=== PATIENT | male | born 1955 | race Hispanic/Latino ===

== ENCOUNTER 2020-01-27 09:56 | Emergency (ER) | payer MEDICARE, OTHER ==
[2020-01-27] MEDS ORDERED: DOXYCYCLINE 100 MG CAP PO ONE (10:44)
[2020-01-27] MEDS ORDERED: HYDROCODONE/APAP 5/325 MG TAB ONE (10:44)
--- NOTE | 2020-01-27 11:02 | EDPHYS ---
Physician Documentation [facility] Name: Rahul Geronimo Age: 64 yrs Sex: Male : 1955 Arrival Date: 01/27/2020 Time: 09:58 Bed 13 Private MD: ED Physician Dann Villaseñor HPI: 01/27 10:29 This 64 yrs old Male presents to ER via Ambulatory with complaints of Wound Infection. snw 10:29 Onset: The symptoms/episode began/occurred suddenly. Associated signs and symptoms: snw Pertinent positives: tenderness and yellow/green discoloration under right thumbnail. Modifying factors: The patient symptoms are alleviated by nothing, the patient symptoms are aggravated by pressure. The patient has experienced a previous episode. It is unknown whether or not the patient has recently seen a physician. Historical: - Allergies: 10:10 No Known Allergies; iw - Home Meds: 10:10 None [Active]; iw - PMHx: 10:10 Arthritis; iw - PSHx: 10:10 Cholecystectomy; iw - Immunization history:: Last tetanus immunization: unknown. - Coronavirus screen:: The patient has NOT traveled to [place] in the past 14 days. Proceed with normal triage process as indicated. - Social history:: Smoking status: Patient reports the use of cigarette tobacco products, smokes two packs cigarettes per day. - Ebola Screening: : Patient negative for fever greater than or equal to 101.5 degrees Fahrenheit, and additional compatible Ebola Virus Disease symptoms Patient denies exposure to infectious person Patient denies travel to an Ebola-affected area in the 21 days before illness onset No symptoms or risks identified at this time. ROS: 10:29 Constitutional: Negative for fever, chills, and weight loss, Eyes: Negative for injury, snw pain, redness, and discharge, ENT: Negative for injury, pain, and discharge, Neck: Negative for injury, pain, and swelling, Cardiovascular: Negative for chest pain, palpitations, and edema, Respiratory: Negative for shortness of breath, cough, wheezing, and pleuritic chest pain, Abdomen/GI: Negative for abdominal pain, nausea, vomiting, diarrhea, and constipation, Back: Negative for injury and pain, : Negative for injury, bleeding, discharge, and swelling, Skin: Negative for injury, rash, and discoloration, Neuro: Negative for headache, weakness, numbness, tingling, and seizure, Psych: Negative for depression, anxiety, suicide ideation, homicidal ideation, and hallucinations. 10:29 MS/extremity: Positive for tenderness, of the right thumb. Exam: 10:27 Constitutional: This is a well developed, well nourished patient who is awake, alert, snw and in no acute distress. Head/Face: Normocephalic, atraumatic. Eyes: Pupils equal round and reactive to light, extra-ocular motions intact. Lids and lashes normal. Conjunctiva and sclera are non-icteric and not injected. Cornea within normal limits. Periorbital areas with no swelling, redness, or edema. ENT: Nares patent. No nasal discharge, no septal abnormalities noted. Tympanic membranes are normal and external auditory canals are clear. Oropharynx with no redness, swelling, or masses, exudates, or evidence of obstruction, uvula midline. Mucous membranes moist. Neck: Trachea midline, no thyromegaly or masses palpated, and no cervical lymphadenopathy. Supple, full range of motion without nuchal rigidity, or vertebral point tenderness. No Meningismus. Chest/axilla: Normal chest wall appearance and motion. Nontender with no deformity. No lesions are appreciated. Cardiovascular: Regular rate and rhythm with a normal S1 and S2. No gallops, murmurs, or rubs. Normal PMI, no JVD. No pulse deficits. Respiratory: Lungs have equal breath sounds bilaterally, clear to auscultation and percussion. No rales, rhonchi or wheezes noted. No increased work of breathing, no retractions or nasal flaring. Abdomen/GI: Soft, non-tender, with normal bowel sounds. No distension or tympany. No guarding or rebound. No evidence of tenderness throughout. Back: No spinal tenderness. No costovertebral tenderness. Full range of motion. MS/ Extremity: Pulses equal, no cyanosis. Neurovascular intact. Full, normal range of motion. Neuro: Awake and alert, GCS 15, oriented to person, place, time, and situation. Cranial nerves II-XII grossly intact. Motor strength 5/5 in all extremities. Sensory grossly intact. Cerebellar exam normal. Normal gait. Psych: Awake, alert, with orientation to person, place and time. Behavior, mood, and affect are within normal limits. 10:27 Skin: Appearance: Color: normal in color, abscess, that is moderate sized, of the subungal to right thumb, full ROM of digit, no fever, paronychia with extension under midline nail. Vital Signs: 10:10 BP 135 / 94; Pulse 71; Resp 16; Temp 98.2; Pulse Ox 98% on R/A; Weight 79.38 kg; Height iw 5 ft. 8 in. (172.72 cm); Pain 5/10; 11:26 BP 127 / 89; Pulse 79; Resp 17; Temp 98.5; Pulse Ox 98% ; bp 10:10 Body Mass Index 26.61 (79.38 kg, 172.72 cm) iw MDM: 10:24 Patient medically screened. snw 11:01 Data reviewed: vital signs, nurses notes. Data interpreted: Pulse oximetry: on room air snw is 98 %. Interpretation: normal. Counseling: I had a detailed discussion with the patient and/or guardian regarding: the historical points, exam findings, and any diagnostic results supporting the discharge/admit diagnosis, the presence of at least one elevated blood pressure reading (>120/80) during this emergency department visit, the need for outpatient follow up, to return to the emergency department if symptoms worsen or persist or if there are any questions or concerns that arise at home. Special discussion: I have referred the patient to see his PCP for further evaluation of high blood pressure. Based on the history and exam findings, there is no indication for further emergent testing or inpatient evaluation. I discussed with the patient/guardian the need to see the primary care provider for further evaluation of the symptoms. 01/27 10:27 Order name: [facility] [place]. 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 Exp: bp 05/07/2021. Lot #: [id number]. } Route: IM; Site: left deltoid; 11:21 Follow up: Response: No adverse reaction bp Disposition: 13:59 Co-signature as Attending Physician, Dann Villaseñor MD I agree with the assessment and kdr plan of care. Disposition: 01/27/20 11:00 Discharged to Home. Impression: Paronychia. - Condition is Stable. - Discharge Instructions: Paronychia, VIS, Tetanus, Diphtheria (Td) - CDC, Wound Care. - Prescriptions for Ultram 50 mg Oral Tablet - take 1 tablet by ORAL route every 6 hours As needed; 12 tablet. Doxycycline Hyclate 100 mg Oral Tablet - take 1 tablet by ORAL route every 12 hours; 20 tablet. - Work release form, Medication Reconciliation Form, Thank You Letter, Antibiotic Education, Prescription Opioid Use form. - Follow up: Emergency Department; When: As needed; Reason: Worsening of condition. Follow up: Private Physician; When: 2 - 3 days; Reason: Recheck today's complaints, Continuance of care, Re-evaluation by your physician. Signatures: Dann Villaseñor MD MD [facility] Leonor Salmeron, CHADW[employer]-C MINE ENGINEERING SUPERINTENDENT-Dariaw Alejandra Franklin, RN RN iw Feliberto Wallis RN RN bp Corrections: (The following items were deleted from the chart) 11:28 11:00 01/27/2020 11:00 Discharged to Home. Impression: Paronychia. Condition is Stable. bp Forms are Medication Reconciliation Form, Thank You Letter, Antibiotic Education, Prescription Opioid Use. Follow up: Emergency Department; When: As needed; Reason: Worsening of condition. Follow up: Private Physician; When: 2 - 3 days; Reason: Recheck today's complaints, Continuance of care, Re-evaluation by your physician. snw
--- NOTE | 2020-01-27 11:02 | ER ---
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 Transition of care: patient was not received from another setting of care. Onset of symptoms was January 19, 2020. Risk Assessment: Do you want to hurt yourself or someone else? Patient reports no desire to harm self or others. Initial Sepsis Screen: Does the patient meet any 2 criteria? No. Patient's initial sepsis screen is negative. Does the patient have a suspected source of infection? No. Patient's initial sepsis screen is negative. Care prior to arrival: None. 10:08 Method Of Arrival: Ambulatory iw 10:08 Acuity: ZULMA 3 iw Triage Assessment: 10:10 General: Appears in no apparent distress. comfortable, Behavior is calm, cooperative, bp appropriate for age. Pain: Complains of pain in right thumb. EENT: No deficits noted. Neuro: No deficits noted. Cardiovascular: No deficits noted. Respiratory: No deficits noted. GI: No signs and/or symptoms were reported involving the gastrointestinal system. : No signs and/or symptoms were reported regarding the genitourinary system. Derm: No deficits noted. Musculoskeletal: No deficits noted. Injury Description: R THUMBNAIL EDEMA. Historical: - Allergies: 10:10 No Known Allergies; iw - Home Meds: 10:10 None [Active]; iw - PMHx: 10:10 Arthritis; iw - PSHx: 10:10 Cholecystectomy; iw - Immunization history:: Last tetanus immunization: unknown. - Coronavirus screen:: The patient has NOT traveled to [place] in the past 14 days. Proceed with normal triage process as indicated. - Social history:: Smoking status: Patient reports the use of cigarette tobacco products, smokes two packs cigarettes per day. - Ebola Screening: : Patient negative for fever greater than or equal to 101.5 degrees Fahrenheit, and additional compatible Ebola Virus Disease symptoms Patient denies exposure to infectious person Patient denies travel to an Ebola-affected area in the 21 days before illness onset No symptoms or risks identified at this time. Screenin:10 Abuse screen: Denies threats or abuse. Denies injuries from another. Nutritional bp screening: No deficits noted. Tuberculosis screening: No symptoms or risk factors identified. Fall Risk None identified. Assessment: 10:10 General: Appears in no apparent distress. comfortable, Behavior is calm, cooperative, bp appropriate for age, SEE TRIAGE NOTE. 11:26 Reassessment: PT D/C HOME AMBULATORY, DX WITH PARONYCHIA. bp Vital Signs: 10:10 BP 135 / 94; Pulse 71; Resp 16; Temp 98.2; Pulse Ox 98% on R/A; Weight 79.38 kg; Height iw 5 ft. 8 in. (172.72 cm); Pain 5/10; 11:26 BP 127 / 89; Pulse 79; Resp 17; Temp 98.5; Pulse Ox 98% ; bp 10:10 Body Mass Index 26.61 (79.38 kg, 172.72 cm) iw ED Course: 09:58 Patient arrived in ED. fj1 10:00 Leonor Salmeron FNP-C [facility]. snw 10:00 Dann Villaseñor MD is Attending Physician. snw 10:09 Triage completed. iw 10:10 Arm band placed on. iw 10:10 Patient has correct armband on for positive identification. Bed in low position. Call bp light in reach. Side rails up X2. 10:13 Feliberto Wallis, RN is Primary Nurse. bp 11:26 Assist provider with I \T\ D: of an abscess on right PARONYCHIA Performed by Leonor NARAYANAN Dressing with Neosporin and 4X4s, Patient tolerated well. Patient did not have IV access during this emergency room visit. 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 Exp: bp 05/07/2021. Lot #: [id number]. } Route: IM; Site: left deltoid; 11:21 Follow up: Response: No adverse reaction bp Outcome: 11:00 Discharge ordered by . jos 11:26 Discharged to home ambulatory. bp 11:26 Condition: stable 11:26 Discharge instructions given to patient, Instructed on discharge instructions, follow up and referral plans. medication usage, wound care, Demonstrated understanding of instructions, follow-up care, medications, wound care, Prescriptions given X 2. 11:28 Patient left the ED. bp Signatures: Leonor Salmeron, FUR STYLIST-C FUR STYLIST-Csnw Alejandra Franklin, RN RN iw Feliberto Wallis, RN RN Amador Quesada fj1
[2020-01-27] MEDS ORDERED: TETANUS & DIPHTHERIA TOX,ADULT 0.5 ML VIAL ONE (11:20)
[2020-01-27 11:54] VITALS: O2SAT 98
[2020-01-27 11:55] VITALS: BP 127/89; TEMP 98.5
== END 2020-01-27 11:28 | disposition home or self-care (01) ==
LOC: ER 09:56
DX: L03.011 Cellulitis of right finger (principal); F17.210 Nicotine dependence, cigarettes, uncomplicated; Z23 Encounter for immunization
CPT/HCPCS: 90471; 90714; 99283